=== PATIENT | female | born 1990 | race American Indian/Alaskan Native ===

== ENCOUNTER 2017-11-08 05:57 | Emergency (ER) | payer SELFPAY ==
--- NOTE | 2017-11-08 09:40 | Emergency Department Report ---
Blank Doc - Documentation Documentation: Patient is a 27-year-old female who is presenting with lower abdominal discomfort since last night. Patient states the pain started after sexual intercourse. Patient denies any vaginal bleeding or discharge. Patient had one episode of dysuria this morning but her last urination felt normal. Patient states she feels as though there is a echo expanding Balloon-like sensation in the lower abdomen. Patient states that she doesn't feel as though she is constipated. Is not passing gas but she says she feels like extreme gas pain as a 10 out of 10 in severity. Patient will have a urinalysis performed test and a KUB will be performed as well. On brief physical exam patient had just minimal suprapubic tenderness to palpation over the last was within normal limits
[2017-11-08 10:07] LABS: HCG Qualitative,Urine Negative (Negative)
[2017-11-08 10:09] LABS: Bilirubin,Urine NEG (Negative); Blood,Urine NEG (Negative); Color,Urine Yellow (Yellow); Mucus,Urine 3+ /HPF; Protein,Urine <15 mg/dL mg/dL (Negative)
--- NOTE | 2017-11-08 10:41 | XRay Report ---
AP ABDOMEN: HISTORY: Abdominal pain, low abdominal pressure. The abdominal gas pattern is unremarkable. No masses or organomegaly is identified and there is no gross evidence of free air or fluid. No significant soft tissue calcifications are noted. IMPRESSION: Unremarkable abdomen.
--- NOTE | 2017-11-08 11:06 | Emergency Department Report ---
ED Abdominal Pain HPI - General Chief Complaint: Abdominal Pain Stated Complaint: ABD PAIN Time Seen by Provider: 11/08/17 09:28 Source: patient Mode of arrival: Ambulatory Limitations: No Limitations - History of Present Illness Initial Comments: 27 F past medical history none presents with complaint of mild abdominal pain since yesterday. Patient denies fevers chills nausea vomiting dysuria hematuria or vaginal bleeding vaginal discharge. States she feels constipated. Patient is awake alert and oriented 3 not in acute distress. Last bowel movement yesterday. Patient states she has a sensation of fullness as if she has to pass gas. Patient denies any pain at this time. MD Complaint: abdominal pain Onset/Timin -: days(s) Location: epigastric Migration to: no migration Severity scale (0 -10): 0 Consistency: now resolved Improves With: nothing Worsens With: nothing Associated Symptoms: denies other symptoms - Related Data Previous Rx's Medication Instructions Recorded Last Taken Type Docusate Sodium [Colace CAP] 100 mg PO BID PRN #30 capsule 11/08/17 Unknown Rx Ibuprofen [Motrin] 800 mg PO Q8HR PRN #15 tablet 11/08/17 Unknown Rx Psyllium Seed (with Sugar) 1 each PO QID PRN #1 box 11/08/17 Unknown Rx [Metamucil] Allergies Allergy/AdvReac Type Severity Reaction Status Date / Time No Known Allergies Allergy Unverified 11/08/17 07:39 ED Review of Systems ROS: Stated complaint: ABD PAIN Other details as noted in HPI Constitutional: denies: chills, fever Eyes: denies: eye pain, eye discharge, vision change ENT: denies: ear pain, throat pain Respiratory: denies: cough, shortness of breath, wheezing Cardiovascular: denies: chest pain, palpitations Endocrine: no symptoms reported Gastrointestinal: abdominal pain. denies: nausea, diarrhea Genitourinary: denies: urgency, dysuria, discharge Musculoskeletal: denies: back pain, joint swelling, arthralgia Skin: denies: rash, lesions Neurological: denies: headache, weakness, paresthesias Psychiatric: denies: anxiety, depression Hematological/Lymphatic: denies: easy bleeding, easy bruising ED Past Medical Hx - Past Medical History Previous Medical History?: No - Surgical History Past Surgical History?: No - Social History Smoking Status: Current Every Day Smoker - Medications Home Medications: Home Medications Medication Instructions Recorded Confirmed Last Taken Type Docusate Sodium [Colace CAP] 100 mg PO BID PRN #30 capsule 11/08/17 Unknown Rx Ibuprofen [Motrin] 800 mg PO Q8HR PRN #15 tablet 11/08/17 Unknown Rx Psyllium Seed (with Sugar) 1 each PO QID PRN #1 box 11/08/17 Unknown Rx [Metamucil] ED Physical Exam - General Limitations: No Limitations General appearance: alert, in no apparent distress - Head Head exam: Present: atraumatic, normocephalic - Eye Eye exam: Present: normal appearance, PERRL, EOMI - ENT ENT exam: Present: mucous membranes moist - Neck Neck exam: Present: normal inspection - Respiratory Respiratory exam: Present: normal lung sounds bilaterally. Absent: respiratory distress - Cardiovascular Cardiovascular Exam: Present: regular rate, normal rhythm. Absent: systolic murmur, diastolic murmur, rubs, gallop - GI/Abdominal GI/Abdominal exam: Present: soft (soft, nontender, nondistended 4 quadrants), normal bowel sounds - Extremities Exam Extremities exam: Present: normal inspection - Back Exam Back exam: Present: normal inspection - Neurological Exam Neurological exam: Present: alert, oriented X3, CN II-XII intact, normal gait - Psychiatric Psychiatric exam: Present: normal affect, normal mood - Skin Skin exam: Present: warm, dry, intact, normal color. Absent: rash ED Course Vital Signs 11/08/17 07:39 Temperature 98.1 F Pulse Rate 83 Respiratory 16 Rate Blood Pressure 123/62 O2 Sat by Pulse 98 Oximetry ED Medical Decision Making - Medical Decision Making a/P: constipation 1- laxatives, stool softeners. Patient denies any vaginal pain or vaginal bleeding or vaginal discharge at this time. 2- urinalysis and x-ray unremarkable 3- vital signs stable for discharge, follow up with primary care doctor 4- I discussed pt with Dr. Breen before sd Critical care attestation.: If time is entered above; I have spent that time in minutes in the direct care of this critically ill patient, excluding procedure time. ED Disposition Clinical Impression: Constipation Qualifiers: Constipation type: unspecified constipation type Qualified Code(s): K59.00 - Constipation, unspecified Disposition: TO HOME OR SELFCARE Is pt being admited?: No Does the pt Need Aspirin: No Condition: Stable Instructions: Abdominal Pain (ED) Prescriptions: Docusate Sodium [Colace CAP] 100 mg PO BID PRN #30 capsule PRN Reason: Constipation Ibuprofen [Motrin] 800 mg PO Q8HR PRN #15 tablet PRN Reason: Pain Psyllium Seed (with Sugar) [Metamucil] 1 each PO QID PRN #1 box PRN Reason: Constipation Referrals: [facility] [Outside] - 3-5 Days Forms: Accompanied Note, Work/School Release Form(ED) Time of Disposition: 11:04
[2017-11-08 11:17] VITALS: BP 123/60
== END 2017-11-08 11:19 | disposition home or self-care (01) ==
LOC: ED 05:57
DX: K59.00 Constipation, unspecified (principal); F17.200 Nicotine dependence, unspecified, uncomplicated
CPT/HCPCS: 74018; 81001; 81025; 99283